=== PATIENT | female | born 1970 | race Caucasian/White ===

== ENCOUNTER 2020-11-07 08:23 | Outpatient (CLI) | payer OTHER ==
[~2020-11-07 08:23] MED LIST: CIPRO500 MG PO; ENALAPRIL MALEAT5 MG PO; FLAGYL500MG PO; PREDNISONE 5 MG; SYNTHROID137 MCG PO; [UNRECOGNIZED DRUG - OTHER]
== END 2020-11-07 08:56 | disposition home or self-care (01) ==
LOC: OFIC 805 08:23
PROVIDERS: ATTEND Otolaryngology Otology & Neurotology
DX: H93.8X1 Other specified disorders of right ear (principal); H69.81 Other specified disorders of Eustachian tube, right ear; J31.0 Chronic rhinitis

== ENCOUNTER 2020-12-05 09:16 | Outpatient (CLI) | payer OTHER | END 2020-12-05 09:57 | disposition home or self-care (01) | LOC: OFIC 805 09:16 | PROVIDERS: ATTEND Otolaryngology Otology & Neurotology | DX: H93.8X1 Other specified disorders of right ear (principal); H69.81 Other specified disorders of Eustachian tube, right ear; J31.0 Chronic rhinitis ==

== ENCOUNTER 2020-12-19 08:56 | Outpatient (CLI) | payer OTHER | END 2020-12-19 09:39 | disposition home or self-care (01) | LOC: OFIC 805 08:56 | PROVIDERS: ATTEND Otolaryngology Otology & Neurotology | DX: H93.8X1 Other specified disorders of right ear (principal); H69.81 Other specified disorders of Eustachian tube, right ear; J31.0 Chronic rhinitis ==

== ENCOUNTER 2021-01-28 13:50 | Outpatient (CLI) | payer OTHER | END 2021-01-28 14:19 | disposition home or self-care (01) | LOC: OFIC 805 13:50 | PROVIDERS: ATTEND Otolaryngology Otology & Neurotology | DX: H90.3 Sensorineural hearing loss, bilateral (principal); H93.8X1 Other specified disorders of right ear; H69.81 Other specified disorders of Eustachian tube, right ear ==